=== PATIENT | female | born 1990 | race Caucasian/White ===

== ENCOUNTER 2021-08-08 13:14 | Emergency (ER) | payer MEDICAID, OTHER ==
[~2021-08-08] VITALS: Ht 157.5 cm; Wt 79.0 kg
[~2021-08-08 13:14] MED LIST: FERR-43 PO; PREN-88 PO
[2021-08-08 13:17] VITALS: BP 134/74
[2021-08-08] MEDS ORDERED: ACETAMINOPHEN 325MG TABLET PO ONE (13:45)
[2021-08-08] MEDS ORDERED: METOCLOPRAMIDE HCL 5MG TABLET PO ONE (14:00)
== END 2021-08-08 15:13 | disposition home or self-care (01) ==
LOC: ER 13:14
DX: S00.03XA Contusion of scalp, initial encounter (principal); J34.1 Cyst and mucocele of nose and nasal sinus; K05.6 Periodontal disease, unspecified; W01.198A Fall on same level from slipping, tripping and stumbling with subsequent striking against other object, initial encounter; Y93.89 Activity, other specified; Y92.89 Other specified places as the place of occurrence of the external cause
CPT/HCPCS: 70486; 81025; 99284; J8597

== ENCOUNTER 2022-05-20 17:26 | Emergency (ER) | payer SELFPAY ==
[~2022-05-20] VITALS: Ht 157.5 cm; Wt 78.5 kg
[2022-05-20 17:32] VITALS: BP 149/96
== END 2022-05-20 20:00 | disposition left against medical advice (07) ==
LOC: ER 17:26
DX: Z53.21 Procedure and treatment not carried out due to patient leaving prior to being seen by health care provider (principal)

== ENCOUNTER 2022-06-09 21:38 | Emergency (ER) | payer MEDICAID ==
[~2022-06-09] VITALS: Ht 170.2 cm; Wt 73.0 kg
[2022-06-09 21:45] VITALS: BP 122/80
== END 2022-06-10 00:15 | disposition left against medical advice (07) ==
LOC: ER 21:38
DX: Z53.21 Procedure and treatment not carried out due to patient leaving prior to being seen by health care provider (principal)